=== PATIENT | female | born 1985 | race Caucasian/White ===

== ENCOUNTER 2016-12-24 11:53 | Emergency (ER) | payer MEDICAID ==
--- NOTE | 2016-12-24 13:08 | ER NURSING DOCUMENTATION ---
Nurse's Notes [facility] Name:Zoila Cheung Age:31 yrs Sex:Female :1985 Arrival Date:12/24/2016 Time:11:53 Bed2 Private MD: Diagnosis:Dental pain Presentation: 12/24 11:55 Acuity: PADMAJA 5 rh 12:01 Presenting complaint: Patient states: SINCE C/O PAIN TO RIGHT LOWER MOLAR, HAS A lc PARTIAL IN THAT AREA THAT SHE THINKS IS CRACKED. WAS UNABLE TO GET AN DENTIST APPT. TRIED ADVIL, ASA, TYLENOL WITHOUT RELIEF. Transition of care: patient was not received from another setting of care. Notified ED Physician of patient's arrival and CC. 12:01 Method Of Arrival: Private Vehicle Triage Assessment: 12:04 General: Appears uncomfortable, Behavior is cooperative. Pain: Complains of pain in lc RIGHT LOWER MOBILE Pain At worst was 8 out of 10 on a pain scale. Quality of pain is described as throbbing, Pain began 2-3 days ago. Neuro: Level of Consciousness is awake, alert, Oriented to person, place, time, event. Derm: Skin is Skin is pink, warm & dry. Historical: - Allergies: No known drug Allergies; - Home Meds: 1. None - PMHx: None; - PSHx: None; - Tetanus: < 10 years. - Ebola Screening: : Patient denies travel to an Ebola-affected area in the 21 days before illness onset. No symptoms or risks identified at this time. . - Immunization history: Flu Vaccine < 1 year. - Social history: Smoking status: Patient uses tobacco products, light tobacco smoker. Screenin:05 Infectious Disease Risk None. Abuse screen: Denies threats or abuse. Denies injuries lc from another. Nutritional screening: No deficits noted. Assessment: 12:05 See Triage Assessment done by same RN. 12:32 Reassessment: Patient appears in no apparent distress at this time. AWAITING MD, WHO IS BUSY WITH HORSE INJURIES, PT UPDATED. Vital Signs: 12:01 BP 145 / 88; Pulse 103; Resp 16; Temp 97.8(O); Pulse Ox 97% on R/A; Weight 68.04 kg arc (R); Height 5 ft. 8 in. (172.72 cm) (R); Pain 8/10; 12:01 Body Mass Index 22.81 (68.04 kg, 172.72 cm) arc ED Course: 11:54 Patient arrived in ED. ama 11:55 Triage completed. 12:01 Caitlin Chiang RN is Primary Nurse. 12:06 Valuables Remains with patient Patient has correct armband on for positive lc identification. Bed in low position. Call light in reach. 12:15 Wallace Laguerre MD is Attending Physician. tl1 Administered Medications: No medications were administered Outcome: 12:56 Discharge ordered by . tl1 12:58 Discharged to home ambulatory. 12:58 Condition: stable 12:58 Discharge Assessment: Patient awake, alert and oriented x 3. No cognitive and/or functional deficits noted. Patient verbalized understanding of disposition instructions. 12:58 Discharge instructions given to patient, Instructed on discharge instructions, follow up and referral plans. medication usage, Demonstrated understanding of instructions, medications, Prescriptions given X 3. 13:07 Patient left the ED. 12/25 16:53 Discharge F/U Call: Unable to reach: left voicemail: Signatures: Caitlin Chiang RN RN Sherwin Sanchez, Reg Reg Wallace Goldstein MD MD tl1 Carlyn Garcia, Reg Reg Krystin Kiran
--- NOTE | 2016-12-24 13:08 | ER PHYSICIAN DOCUMENTATION ---
Physician Documentation [facility] Name:Zoila Cheung Age:31 yrs Sex:Female :1985 Arrival Date:12/24/2016 Time:11:53 Bed2 Private MD: Wallace Walker Disposition: 12/25 06:47 Chart complete. tl1 Disposition: 12/24/16 12:56 Discharged to Home/Self Care. Impression: Dental pain. - Condition is Good. - Discharge Instructions: TOOTH PAIN - DENTAL PAIN. - Prescriptions for penicillin V potassium 500 mg Oral tablet - take 1 tablet by ORAL route every 8 hours for 10 days; 30 tablet. [place] 7.5- 325 mg Oral Tablet - take 1 tablet by ORAL route every 6 hours As needed; 20 tablet. Zofran 4 mg Oral Tablet - take 1-2 tablet by ORAL route every 4-6 hours As needed; 10 tablet. - Medical Reconciliation form form. - Follow up: Private Physician; When: 2 - 3 days; Reason: Recheck today's complaints, Continuance of care. - Problem is new. - Symptoms are unchanged. HPI: 12/24 12:15 This 31 yrs old Female presents to ER via Private Vehicle with complaints of tl1 Dental pain. 12:52 The patient presents with pain, that is acute. The problem is located in the lower tl1 right second molar. . 12:52 Onset: The symptom(s)/episode began/occurred gradually, 3 day(s) ago. Associated signs tl1 and symptoms: Pertinent negatives: chills, fever, nausea, swelling. Historical: - Allergies: No known drug Allergies; - Home Meds: 1. None - PMHx: None; - PSHx: None; - Tetanus: < 10 years. - Ebola Screening: : Patient denies travel to an Ebola-affected area in the 21 days before illness onset. No symptoms or risks identified at this time. . - Immunization history: Flu Vaccine < 1 year. - Social history: Smoking status: Patient uses tobacco products, light tobacco smoker. ROS: 12:52 Constitutional: Negative for fever, chills, and weight loss. tl1 12:52 ENT: Positive for dental pain, Negative for injury or acute deformity, ear pain, sore throat, difficulty swallowing, difficulty handling secretions. 12:52 All other systems are negative. Exam: 12:52 Constitutional: This is a well developed, well nourished patient who is awake, alert, tl1 and in no acute distress. 12:52 Head/Face: Normocephalic, atraumatic. tl1 12:52 ENT: Mouth: is normal, Posterior pharynx: is normal, Dental exam: dental caries, that is moderate, pain, that is moderate, specifically in the lower right second molar (#31). Vital Signs: 12:01 BP 145 / 88; Pulse 103; Resp 16; Temp 97.8(O); Pulse Ox 97% on R/A; Weight 68.04 kg arc (R); Height 5 ft. 8 in. (172.72 cm) (R); Pain 8/10; 12:01 Body Mass Index 22.81 (68.04 kg, 172.72 cm) arc MDM: 12:15 Patient medically screened. tl1 12:50 Differential diagnosis: dental caries, dental abscess. Data reviewed: vital signs, tl1 nurses notes, and as a result, I will discharge patient. Counseling: I had a detailed discussion with the patient and/or guardian regarding: the historical points, exam findings, and any diagnostic results supporting the discharge/admit diagnosis, the need for outpatient follow up, to return to the emergency department if symptoms worsen or persist or if there are any questions or concerns that arise at home. Response to treatment: There is no appreciated change of the patient's symptoms at this time, and as a result, I will discharge patient. Dispensed Medications: No medications were administered Signatures: Caitlin Chiang RN RN lc Leigh, Tom, MD MD tl1
== END 2016-12-24 13:08 | disposition home or self-care (01) ==
LOC: ER 11:53
DX: K08.89 Other specified disorders of teeth and supporting structures (principal); K02.9 Dental caries, unspecified; F17.210 Nicotine dependence, cigarettes, uncomplicated
CPT/HCPCS: 99282